=== PATIENT | female | born 1985 | race Caucasian/White ===

== ENCOUNTER 2020-10-22 15:46 | Inpatient (IN) | payer BC ==
[~2020-10-22] VITALS: Ht 170.2 cm; Wt 59.5 kg
[2020-10-22] MEDS ORDERED: PROPARACAINE OPHTH 0.5%, 15ML ONE (17:15)
[2020-10-22] MEDS ORDERED: HYDROmorphone 2 MG/ML, 1ML ONE (17:27)
[2020-10-22] MEDS ORDERED: DIPHENHYDRAMINE 50 MG/ML, 1ML ONE (17:27)
[2020-10-22] MEDS ORDERED: METOCLOPRAMIDE 5 MG/ML, 2ML ONE (17:27)
[2020-10-22] MEDS ORDERED: HYDROmorphone 1 MG/ML, 1ML INJ IVPush PRN (17:30)
[2020-10-22] MEDS ORDERED: VANCOMYCIN PER PHARMACY MC PRN (18:00)
[2020-10-22] MEDS ORDERED: PROPARACAINE OPHTH 0.5%, 15ML EACHEYE ONE (18:00)
[2020-10-22] MEDS ORDERED: DIPHENHYDRAMINE 50 MG/ML, 1ML IVPush ONE (18:00)
[2020-10-22] MEDS ORDERED: METOCLOPRAMIDE 5 MG/ML, 2ML IVPush ONE (18:00)
[2020-10-22] MEDS ORDERED: CEFTRIAXONE 2 GM in DEXTROSE 5% 50 ML IVPB ONE (18:30)
[2020-10-22] MEDS ORDERED: VANCOMYCIN 2,200 MG in SODIUM CHLORIDE 0.9% 500 ML IV ONE (18:30)
[2020-10-22 18:31] LABS: MEAN CORPUSCULAR HEMOGLOBIN 30.1 pg (27.0-34.8); MEAN CORPUSCULAR HGB CONC 33.9 g/dL (32.4-35.8); MEAN PLATELET VOLUME 8.5 fL (7.4-10.4); PLATELET COUNT 164 x10^3/uL (130-400); RED BLOOD COUNT 4.11 x10^6/uL (3.82-5.3); RED CELL DISTRIBUTION WIDTH 13.1 % (9.6-15.2)
[2020-10-22 18:40] LABS: ALANINE AMINOTRANSFERASE 42 U/L (12-78); ALBUMIN 2.3 g/dL (3.4-5.0); CREATININE 0.51 mg/dL (0.55-1.02)
[2020-10-22] MEDS ORDERED: LIDOCAINE-MPF 1%, 5ML ONE (18:44)
[2020-10-22 18:48] LABS: ALKALINE PHOSPHATASE 63 U/L (45-117); ANION GAP 9 mmol/L (5-15); BILIRUBIN,TOTAL 0.4 mg/dL (0.2-1.0); CHLORIDE 97 mmol/L (98-107); TOTAL PROTEIN 8.1 g/dL (6.4-8.2)
[2020-10-22] MEDS ORDERED: OMNIPAQUE 350 MG/ML, 75ML BOTTLE ONE (19:12)
[2020-10-22] MEDS ORDERED: MANNITOL 0.25 GM/ML, 50ML IVPush ONE ×2 (20:00→20:30)
--- NOTE | 2020-10-22 20:06 | NUR ---
THROUGHPUT RN: ESTER PRICE AT [facility]
--- NOTE | 2020-10-22 20:10 | NUR ---
Scott burris in [facility] - 10/22/20 at 2227 by MALIKA OPTOMETRISTS AT PT BEDSIDE
--- NOTE | 2020-10-22 20:20 | NUR ---
OPTOMETRISTS AT PT BEDSIDE, PT PERFORM PROCEDURE TO RELIEV EYE PRESURE. PT FAMILY SIGNED CONSENT. PT AWARE OF PROCEDURE.
--- NOTE | 2020-10-22 20:30 | NUR ---
EYE DR RECOMENDED PT LAY FLAT TO HELP RELIVE EYE PRESURE.
[2020-10-22 20:39] LABS: BAND#(MANUAL) 2.96 x10^3/uL; BANDS%(MANUAL) 40 % (0-7); LYMPH#(MANUAL) 0.89 x10^3/uL (1-3.4); LYMPHS% (MANUAL) 12 % (22-44); METAMYELOCYTES# (MANUAL) 0.07 x10^3/uL (0-0); METAMYELOCYTES% (MANUAL) 1 % (0-1); MONOS#(MANUAL) 1.04 x10^3/uL (0.3-2.7); MONOS% (MANUAL) 14 % (2-9); SEG#(MANUAL) 2.44 x10^3/uL (1.8-6.8); SEGS% (MANUAL) 33 % (42-75)
[2020-10-22 20:42] LABS: <PLATELET ESTIMATE> ADEQUATE; <PLT MORPHOLOGY> NORMAL PLT MORPH; <RBC MORPHOLOGY> NORMAL; TOXIC GRAN 1+
--- NOTE | 2020-10-22 21:17 | NUR ---
PT MEDICATED PER MAR
[2020-10-22] MEDS ORDERED: PILOCARPINE OPHTH 2%, 15ML EACHEYE SCH (21:30)
[2020-10-22] MEDS ORDERED: TIMOLOL OPHTH 0.5%, 5ML EACHEYE ONE (21:30)
[2020-10-22] MEDS ORDERED: AcetaZOLAMIDE INJ 500 MG IVPush ONE (21:30)
[2020-10-22] MEDS ORDERED: POLYETHYLENE GLYCOL 17 GM PACKET PO PRN (22:30)
[2020-10-22] MEDS ORDERED: ENOXAPARIN 80 MG/0.8 ML SQ SCH (22:30)
[2020-10-22] MEDS ORDERED: OXYcodone IR 5MG TABLET PO PRN (22:30)
[2020-10-22] MEDS ORDERED: ONDANSETRON 2MG/ML, 2ML IVPush PRN (22:30)
[2020-10-22] MEDS ORDERED: MELATONIN 5 MG TABLET PO PRN (22:30)
[2020-10-22] MEDS ORDERED: KETOROLAC 30 MG/1 ML IV PRN (22:30)
[2020-10-22] MEDS ORDERED: ACETAMINOPHEN 325 MG TABLET PO PRN (22:30)
[2020-10-22] MEDS ORDERED: LABETALOL 5MG/ML, 20ML IVPush PRN (22:30)
[2020-10-22] MEDS ORDERED: HYDROmorphone 2 MG/ML, 1ML IVPush PRN (22:30)
[2020-10-22] MEDS ORDERED: PHARMACY MAY ADJ FOR RENAL FX MC PRN (22:30)
--- NOTE | 2020-10-22 22:38 | NUR ---
report received from kaleb barron, pt care transferred at this time. nadya.
--- NOTE | 2020-10-22 22:43 | NUR ---
report called to Nery GARDNER
--- NOTE | 2020-10-22 22:50 | NUR ---
REPORT TO VIRGIL GARDNER FOR PT TRANSFER TO UNIT
--- NOTE | 2020-10-22 23:54 | NUR ---
[facility] ([facility] [place]) - [phone] JO[facility] ([facility]) - [phone]
[2020-10-23 00:23] VITALS: BP 113/73
[2020-10-23 00:25] VITALS: BP 117/76
[2020-10-23] MEDS: ENOXAPARIN 60 MG/0.6 ML SQ SCH ×2 (00:44→12:11)
[2020-10-23 03:26] LABS: MICROSCOPIC NOT IND
[2020-10-23 04:00] VITALS: BP 109/69
[2020-10-23 04:14] LABS: MEAN CORPUSCULAR HEMOGLOBIN 30.9 pg (27.0-34.8); MEAN CORPUSCULAR HGB CONC 34.8 g/dL (32.4-35.8); MEAN PLATELET VOLUME 8.9 fL (7.4-10.4); PLATELET COUNT 160 x10^3/uL (130-400); RED BLOOD COUNT 4.43 x10^6/uL (3.82-5.3); RED CELL DISTRIBUTION WIDTH 13.1 % (9.6-15.2)
[2020-10-23 04:24] LABS: ANION GAP 8 mmol/L (5-15); CHLORIDE 99 mmol/L (98-107); CREATININE 0.72 mg/dL (0.55-1.02)
[2020-10-23 04:44] LABS: <PLATELET ESTIMATE> ADEQUATE; <PLT MORPHOLOGY> NORMAL PLT MORPH; <RBC MORPHOLOGY> NORMAL; BAND#(MANUAL) 1.49 x10^3/uL; BANDS%(MANUAL) 33 % (0-7); LYMPH#(MANUAL) 0.36 x10^3/uL (1-3.4); LYMPHS% (MANUAL) 8 % (22-44); MONOS#(MANUAL) 0.18 x10^3/uL (0.3-2.7); MONOS% (MANUAL) 4 % (2-9); SEG#(MANUAL) 2.48 x10^3/uL (1.8-6.8); SEGS% (MANUAL) 55 % (42-75); TOXIC GRAN 1+
[2020-10-23] MEDS ORDERED: POTASSIUM CHLORIDE 20 MEQ TAB.ER.PRT PO ONE (06:30)
[2020-10-23] MEDS ORDERED: PHARMACOKINETIC CONSULTATION MC ONE (09:30)
[2020-10-23] MEDS ORDERED: VANCOMYCIN PER PHARMACY MC PRN (09:30)
[2020-10-23] MEDS: CEFTRIAXONE 2 GM in DEXTROSE 5% 50 ML IVPB SCH ×2 (09:50→21:34)
[2020-10-23] MEDS: TIMOLOL OPHTH 0.5%, 5ML EACHEYE SCH ×2 (09:51→21:34)
[2020-10-23] MEDS ORDERED: PHARMACOKINETIC MONITORING MC PRN (10:00)
[2020-10-23] MEDS: VANCOMYCIN 1,200 MG in SODIUM CHLORIDE 0.9% 250 ML IV SCH ×2 (12:12→19:34)
[2020-10-24] MEDS: ENOXAPARIN 60 MG/0.6 ML SQ SCH (00:01)
[2020-10-24] MEDS: VANCOMYCIN 1,200 MG in SODIUM CHLORIDE 0.9% 250 ML IV SCH (03:45)
[2020-10-24 03:56] LABS: MEAN CORPUSCULAR HEMOGLOBIN 30.6 pg (27.0-34.8); MEAN CORPUSCULAR HGB CONC 34.5 g/dL (32.4-35.8); MEAN PLATELET VOLUME 9.1 fL (7.4-10.4); PLATELET COUNT 186 x10^3/uL (130-400); RED BLOOD COUNT 4.15 x10^6/uL (3.82-5.3); RED CELL DISTRIBUTION WIDTH 13.3 % (9.6-15.2)
[2020-10-24 04:12] LABS: ANION GAP 3 mmol/L (5-15); CALCIUM 9.2 mg/dL (8.5-10.1); CHLORIDE 110 mmol/L (98-107); CREATININE 0.71 mg/dL (0.55-1.02)
[2020-10-24 04:14] LABS: VANCOMYCIN,TROUGH 12.1 mcg/mL (5.0-10.0)
[2020-10-24 04:39] LABS: BAND#(MANUAL) 1.61 x10^3/uL; BANDS%(MANUAL) 23 % (0-7); LYMPH#(MANUAL) 0.49 x10^3/uL (1-3.4); LYMPHS% (MANUAL) 7 % (22-44); MONOS#(MANUAL) 0.42 x10^3/uL (0.3-2.7); MONOS% (MANUAL) 6 % (2-9); SEG#(MANUAL) 4.48 x10^3/uL (1.8-6.8); SEGS% (MANUAL) 64 % (42-75)
[2020-10-24 04:40] LABS: <PLATELET ESTIMATE> ADEQUATE; <RBC MORPHOLOGY> NORMAL
[2020-10-24 04:41] LABS: <PLT MORPHOLOGY> NORMAL PLT MORPH
[2020-10-24] MEDS: TIMOLOL OPHTH 0.5%, 5ML EACHEYE SCH ×2 (09:18→21:00)
[2020-10-24] MEDS: CEFTRIAXONE 2 GM in DEXTROSE 5% 50 ML IVPB SCH (09:19)
[2020-10-24] MEDS: RIVAROXABAN 15 MG TABLET PO SCH ×2 (12:44→21:44)
[2020-10-24 14:10] VITALS: BP 113/69
[2020-10-24] MEDS ORDERED: RIVAROXABAN 15 MG TABLET PO SCH (17:00)
[2020-10-24 19:33] VITALS: BP 120/70
[2020-10-24] MEDS ORDERED: [UNRECOGNIZED DRUG - OTHER] (20:29)
[2020-10-24] MEDS ORDERED: ACYC-40 PO (20:29)
[2020-10-24] MEDS ORDERED: SULF1TAB23 PO (20:29)
[2020-10-24] MEDS ORDERED: LENA25CA PO (20:29)
[2020-10-24] MEDS ORDERED: DEXA1.5T28 PO (20:29)
[2020-10-24] MEDS ORDERED: DARATUMUMAB (20:29)
[2020-10-24] MEDS ORDERED: ASPI-191 PO (20:29)
[2020-10-24] MEDS ORDERED: OMEP20TA9 PO (20:29)
[2020-10-24] MEDS ORDERED: PRED5TAB19 PO (20:29)
[2020-10-25 02:57] VITALS: BP 123/78
[2020-10-25 08:00] VITALS: BP 123/65
[2020-10-25] MEDS: RIVAROXABAN 15 MG TABLET PO SCH (08:47)
[2020-10-25] MEDS: TIMOLOL OPHTH 0.5%, 5ML EACHEYE SCH (08:48)
[2020-10-25] MEDS ORDERED: RIVA1TAB PO (13:58)
[2020-10-25] MEDS ORDERED: PRED10TA PO (14:00)
[2020-10-25 14:13] VITALS: BP 116/72
[2020-10-25] MEDS ORDERED: ERYT30GE2 TP (14:24)
[2020-11-14] MEDS ORDERED: RIVAROXABAN 20 MG TABLET PO SCH (17:00)
== END 2020-10-25 17:05 | disposition home or self-care (01) | DRG 92 ==
LOC: ED 20:13 → EDIP 21:33 → CCU 10-23 00:01 → 4EST 10-24 14:34
PROVIDERS: ADMIT Internal Medicine; ATTEND Internal Medicine
DX: G08 Intracranial and intraspinal phlebitis and thrombophlebitis (principal); E87.1 Hypo-osmolality and hyponatremia; D84.9 Immunodeficiency, unspecified; C90.00 Multiple myeloma not having achieved remission; H05.019 Cellulitis of unspecified orbit; T79.A9XA Traumatic compartment syndrome of other sites, initial encounter; H40.059 Ocular hypertension, unspecified eye; T38.0X5A Adverse effect of glucocorticoids and synthetic analogues, initial encounter; R73.9 Hyperglycemia, unspecified; H05.129 Orbital myositis, unspecified orbit; H05.20 Unspecified exophthalmos
CPT/HCPCS: 36415; 70460; 70481; 70546; 80048; 80053; 80202; 81003; 83605; 84145; 85025; 85651; 86140; 86146; 86147; 87081; 93005; 96374; 96375; 99292; G0378; J0696; J1170; J1650; J2930; J3370; Q9967; J1120; J1200; J2150; J2765; J7040; J7050